=== PATIENT | female | born 1945 | race Caucasian/White ===

== ENCOUNTER 2021-07-08 18:00 | Inpatient (IN) | payer OTHER ==
[~2021-07-08] VITALS: Ht 167.6 cm; Wt 70.2 kg
[~2021-07-08 18:00] MED LIST: APAP W/CODEINE1 TA2 PO; LISINOPRIL2.5 MG PO; LOPRESSOR25 PO; NORCO 5-325 TA1 EACH PO
[2021-07-08 18:02] VITALS: BP 146/53
[2021-07-08 20:20] LABS: CALCIUM 9.1 mg/dL (8.5-10.1); CREATININE 1.4 mg/dL (0.6-1.0); POTASSIUM 4.1 mmol/L (3.5-5.1)
[2021-07-08] MEDS ORDERED: TOPROL XL100 MG PO (20:22)
[2021-07-08] MEDS ORDERED: LISINOPRIL20 MG PO (20:22)
[2021-07-08] MEDS ORDERED: SIMVASTATIN80 MG PO (20:22)
[2021-07-08] MEDS ORDERED: NORVASC5 MG PO (20:23)
[2021-07-08 21:02] LABS: ABSOLUTE NEUTROPHILS 11.6 thou/uL (1.4-8.2); BASOPHILS 0.6 % (0.0-2.0); EOSINOPHILS 3.2 % (0.0-3.0); HEMATOCRIT 38.3 % (37.0-47.0); HEMOGLOBIN 12.1 gm/dL (12.0-15.0); LYMPHOCYTES 7.2 % (24.0-44.0); MCH 26.6 pg (26.0-34.0); MCHC 31.7 g/dL (28.0-37.0); MCV 83.9 fL (80.0-100.0); MONOCYTES 7.4 % (1.0-8.0); PLATELET COUNT 240 thou/uL (150-400); POLYS 81.6 % (36.0-66.0); RBC 4.57 mil/uL (4.20-5.00); RDW 13.9 % (10.5-14.5); WBC 14.2 thou/uL (4.0-11.0)
--- NOTE | 2021-07-08 22:15 | NUR ---
SPOKE WITH PT EVITA CHARLES [phone]. UPDATED TO PLAN OF CARE AND ADMISSION DIAGNOSIS. ALL QUESTIONS AND CONCERNS ADDRESSED
[2021-07-09 02:37] LABS: CALCIUM 8.8 mg/dL (8.5-10.1); CREATININE 1.3 mg/dL (0.6-1.0); POTASSIUM 4.1 mmol/L (3.5-5.1)
[2021-07-09 03:23] LABS: HEMATOCRIT 37.4 % (37.0-47.0); HEMOGLOBIN 11.8 gm/dL (12.0-15.0); MCH 26.6 pg (26.0-34.0); MCHC 31.7 g/dL (28.0-37.0); MCV 83.9 fL (80.0-100.0); RBC 4.45 mil/uL (4.20-5.00); RDW 14.1 % (10.5-14.5); WBC 13.9 thou/uL (4.0-11.0)
[2021-07-09 09:23] VITALS: BP 126/58
[2021-07-09 10:50] VITALS: BP 120/48
[2021-07-09 14:05] VITALS: BP 106/50
[2021-07-09 18:52] VITALS: BP 106/50
[2021-07-09 18:57] VITALS: BP 123/69
[2021-07-09 20:32] VITALS: BP 140/75
--- NOTE | 2021-07-09 23:16 | NUR ---
PT ADMITTED TO 453 AT 1850 FROM ER. PT ALERT AND ORIENTED X 4. PT VERY ANXIOUS. AMB TO BR WITH WALKER AND ASSIST X 1. HAS PAIN IN HER FEET WITH AMBULATION. USING BSC FOR REST OF NIGHT. 02 ON AT 4L PER NC CONT. PT VERY SOB WITH EXERTION. LFA SL INTACT AND PATENT. LUNGS DIMINISHED. NO COUGH NOTED. PT ORIENTED TO ROOM AND USE OF CALL LIGHT. UNIT HANDBOOK GIVEN TO PT. PT C/O PAIN IN HER FEET. HYDROCODONE GIVEN ORDERED. PT NPO AFTER MIDNIGHT. PT INSTRUCTED REGARDING FALL PRECAUTIONS. BED ALARM ON FOR SAFETY. WILL CONTINUE TO MONITOR.
[2021-07-10 05:00] VITALS: BP 184/82
[2021-07-10 07:49] VITALS: BP 130/72
[2021-07-10 10:12] LABS: ABSOLUTE NEUTROPHILS 10.7 thou/uL (1.4-8.2); BASOPHILS 0.4 % (0.0-2.0); EOSINOPHILS 3.8 % (0.0-3.0); HEMATOCRIT 37.9 % (37.0-47.0); HEMOGLOBIN 11.8 gm/dL (12.0-15.0); LYMPHOCYTES 7.2 % (24.0-44.0); MCH 26.3 pg (26.0-34.0); MCHC 31.2 g/dL (28.0-37.0); MCV 84.3 fL (80.0-100.0); MONOCYTES 6.4 % (1.0-8.0); PLATELET COUNT 236 thou/uL (150-400); POLYS 82.2 % (36.0-66.0); RDW 14.5 % (10.5-14.5)
[2021-07-10 12:05] VITALS: BP 155/83
--- NOTE | 2021-07-10 15:32 | NUR ---
PT ADMITTED RELATED TO SOB, PNEUMONIA. CM REVIEWED CHART AND SPOKE WITH CARE TEAM. CM MET WITH PT AT BEDSIDE THIS DAY. PT APPEARED TO BE A&O X4. CM ROLE INTRODUCED. PT INDICATED SHE LIVES ALONE IN A HOUSE WITH 2-3 STEPS TO ENTER AND NO STEPS SHE USES INSIDE. 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 PT STATED SHE HAS A CANE FOR HOME USE. PT STATED SHE PLANS TO CHANGED PCP FROM DR. JUHI CASTELLANOS TO DR. WONG IN THE NEAR FURTURE. CARE TEAM INDICATED SHE WILL BE HERE OVER THE WEEKEND. CM SPOKE WITH PT ABOUT HOME O2 ANS HH SERVICES. CM TO FOLLOW INDICATED WITH DC PLANNING.
[2021-07-10 20:52] VITALS: BP 146/73
--- NOTE | 2021-07-11 04:51 | NUR ---
ASSUMED CARE AT 1900, PT LAYING DOWN COMFORTABLY, CALL LIGHT WITHIN REACH, REPORTS RIGHT FOOT PAIN, POOR PERFUSION FAINT PULSE, PAIN MEDICATION ADMINISERED PRESCRIBED, NO ADBVERSE REACTION NOTED, COMPLIANT TO TX, TOILETED NEEDED. WILL CONTINUE TO MONIOR.
[2021-07-11 05:04] VITALS: BP 122/63
[2021-07-11 07:38] VITALS: BP 148/86
[2021-07-11 16:24] VITALS: BP 143/75
[2021-07-11 20:28] VITALS: BP 157/71
--- NOTE | 2021-07-12 05:29 | NUR ---
ASSUMED CARE AT 1900, PT LAYING COMFORTABLY IN BED REPORTS PAIN ON THE RIGHT FOOT, PAIN MEDICATION ADMINISTERED PER REQUEST, COMPLIANT TO TX, NO ADVERSE REACTION, COMLIANT WITH O2, IV PATENT, SOB, UNABLE TO OBTAIN ADEQUATE SPUTUM, LAYING COMFORTABLY IN BED CALL LIGHT WITHIN REACH, TOILETED NBEEDED WILL CONBTINUE TO MINITOR.
[2021-07-12 07:00] VITALS: BP 140/72
--- NOTE | 2021-07-12 16:53 | NUR ---
Assumed pt care at 7am. Pt in and out of bed with sba.Assessment completed. Vss. Pt was very emotional related her new diagnosis and wanted someone to stay with her. Pastoral care called but not available. Emotional support given.Pt friend Aisha notified and she said that she will come to visit this evening.Pt c/o feet pain and norco given with relief.Consult called to Dr Prince as ordered. Pt in bed at present with o2 on.Will continue to monitor.
[2021-07-12 18:00] VITALS: BP 148/73
[2021-07-12 21:48] VITALS: BP 133/60
--- NOTE | 2021-07-13 05:15 | NUR ---
ASSUMED CARE AT 1900, PT HAS PROCEDURE SCHEDULED 07/13/21, LAYING COMFORTABLY IN BED, REPORTED RIGHT FOOT PAIN, PAIN MEDICATION ADMINISTERED, SLEEPING, COMPLIANT TO TX, NO ADVERSE REACTION NOTED, STAYED NPO AFTER MIDNIGHT, CALL LIGHT IN REACH, BELONGINGS WITHIN REACH, PT FRIEND REQUESTED TO BE NOTIFIED OF THE TIME PROCEDURE IS SHEDULED PRIOR, PT AUTHORIZED THIS. PLEASE NOTIFY HANNAH ON [phone] ONCE TIME FOR THE SUGERY IS DETERMINED. WILL CONTINUE TO MONITOR.
[2021-07-13 07:51] VITALS: BP 129/69
[2021-07-13 08:45] LABS: CALCIUM 8.6 mg/dL (8.5-10.1); CREATININE 1.1 mg/dL (0.6-1.0); POTASSIUM 3.6 mmol/L (3.5-5.1)
--- NOTE | 2021-07-13 13:16 | NUR ---
Assumed pt care at 7am.Pt in and out of bed to bsc with assist x1. Assessment completed.vss.Dr Recio and Suresh here, order noted. Pain med given for rt leg pain with partial relief.Pt kept npo for aortogram. Pt friend notified about time for picker feeder. Around 1300,pt left for labor mediator per bed.Will continue to monitor.
[2021-07-13 13:31] VITALS: BP 127/64
--- NOTE | 2021-07-13 15:49 | NUR ---
PT HAD ARTERIOGRAM THIS DAY. CARE TEAM INDICATED PT MAY BE MEDICALLY STABLE TO DC HOME WITH HOME HEALTH AND HOME O2 TOMORROW. CM FOLLOWING REGARDING DC PLANNING.
--- NOTE | 2021-07-13 17:50 | NUR ---
PT TRANSFERRED BACK TO [facility]. LEFT GROIN DRESSING CLEAN DRY INTACT. VSS. TOLERATED ANGIOGRAM WELL. VSS BP 127/55; HR 82. REPORT TO CHAD
[2021-07-13 20:05] VITALS: BP 125/67
[2021-07-14 06:02] LABS: HEMATOCRIT 34.8 % (37.0-47.0); HEMOGLOBIN 11.3 gm/dL (12.0-15.0); MCH 27.2 pg (26.0-34.0); MCHC 32.4 g/dL (28.0-37.0); RBC 4.14 mil/uL (4.20-5.00); RDW 14.2 % (10.5-14.5); WBC 12.4 thou/uL (4.0-11.0)
[2021-07-14 06:28] LABS: ALBUMIN 2.1 g/dL (3.4-5.0); CALCIUM 7.5 mg/dL (8.5-10.1); CREATININE 0.8 mg/dL (0.6-1.0); PHOSPHORUS 2.2 mg/dL (2.5-4.9); POTASSIUM 3.4 mmol/L (3.5-5.1)
--- NOTE | 2021-07-14 06:37 | NUR ---
ASSUMED CARE OF PT AT 1900. PT ASSESSED TO BE AOX4 76F PRESENTING WITH PNEUMONIA AND L LEG OCCLUSION. PT HAD AORTOGRAM WITH STENTS YESTERDAY, L GROIN SITE C/D/I NONTENDER WITH NO BLEEDING THROUGHOUT THE NIGHT. THROUGHOUT THE NIGHT PT WAS ABLE TO REST QUIETLY IN ROOM WITH NO COMPLAINTS, VSS. PT IS VERY HAPPY WITH PROGRESS OF SURGERY. IS ABLE TO GET UP TO PIVOT TO COMMODE, SINUS ON TELE, ON 2L OXYGEN, PAIN CONTROLLED WITH ORAL MEDICATION, AND SUGARS CONTROLLED. RESTING IN ROOM NOW, WILL PASS ON INFORMATION TO DAY SHIFT RN.
[2021-07-14 07:39] VITALS: BP 160/81
--- NOTE | 2021-07-14 12:29 | NUR ---
PT TO GO FOR ANGIOGRAM THIS DAY. CM MET WITH PT THIS AM SHE HAD EXPRESSED CONCERN ABOUT DISCHARGING HOME ALONE. CM PROVIDED [employer] SNF LIST SHOULD SH FEEL LIKE SHE ISN'T READY TO DC HOME FOLLOWING PROCEDURE. CM INDICATED OTHERWISE WE WOULD ASSIST IN ORDERING HOME 02, WHATEVER TYPE OF WALKER PT NEEDED WELL HOME HEALTH PT, OT, AND NURSING. CM FOLLOWING REGARDING DC PLANNING.
[2021-07-14 16:40] VITALS: BP 138/72
--- NOTE | 2021-07-14 18:39 | NUR ---
PT ALERT AND ORIENTED TIMES FOUR. VSS. PT C/O PAIN PRN MEDICATIONS GIVEN WITH SOME RELEIF. PT TOLERATES MEDS AND MEALS. PT UP TO BSC WITH STANDBY ASSIST. WILL CONTINUE TO MONITOR.
[2021-07-14 19:49] VITALS: BP 161/79
[2021-07-15 00:05] VITALS: BP 126/56
--- NOTE | 2021-07-15 03:03 | NUR ---
PATIENT AOX4 MAKES NEEDS KNOWN. PATIENT HAS BEEN NPO SINCE MIDNIGHT. PAIN CONTROLLED THIS SHIFT. FALL PRECAUTION IN PLACE.PATIENT NEEDS MAXIMUM ASSISTANCE WITH ADL, BED MOBILITY, TRANSFER AND TOILETING. PATIENT IN BED ASLEEP AT THIS TIME BREATHING REGULAR AND UNLABOURED.
[2021-07-15 04:16] VITALS: BP 145/68
[2021-07-15 07:46] VITALS: BP 142/64
--- NOTE | 2021-07-15 09:24 | NUR ---
Assess for length of stay. Admit with respitatory failure, pneumonia. Pt eating well, >75% of meals and reports no wt loss. Presents low nutrition risk
--- NOTE | 2021-07-15 11:58 | NUR ---
CM SPOKE WITH PT'S SON MELVIN TWICE ALREADY THIS DAY. HE HAD HEARD FROM PT'S FRIENDS THAT PT'T ANGIOGRAM WITH IR HAD BEEN RESCHEDULED FOR TOMORROW. CM INDICATED THAT CM HAD REVIEWED CHART, SPOKEN WITH STAFF, AND LAID EYES ON PT AND THAT THE REASON THAT THE PROCEDURE MAY HAVE BEEN RESCHEDULED WAS LIKELY RELATED TO ANSTEHIA OR IR'S AVAIABILITY. CM INIDCATED THAT HIS MOTHER WAS STABLE WITH MINIMAL CHANGES THEY HAD PUT A CREAM ON THE BOTTOM OF HER FOOT. PT TO HAVE ANGIOGRAM TOMORROW. CM FOLLOWING.
[2021-07-15 16:39] VITALS: BP 132/62
[2021-07-15 19:44] VITALS: BP 137/69
[2021-07-16 00:56] VITALS: BP 144/62
--- NOTE | 2021-07-16 03:54 | NUR ---
RECEIVED CAREOF THIS PATIENT AT 1900. PATIENT ALERT AND ORIENTED X4. UP TO BSC WITH ASSISTOF 1. C/O PAIN, MED GIVEN. NPO SINCE MNFOR A PROCEDURE THIS AM. SLEPT MOST OF NIGHT.
[2021-07-16 06:14] VITALS: BP 119/60
[2021-07-16 07:29] VITALS: BP 149/70
[2021-07-16 09:59] LABS: HEMATOCRIT 35.9 % (37.0-47.0); HEMOGLOBIN 11.3 gm/dL (12.0-15.0); MCH 26.5 pg (26.0-34.0); MCHC 31.5 g/dL (28.0-37.0); PLATELET COUNT 247 thou/uL (150-400); RBC 4.28 mil/uL (4.20-5.00); RDW 14.1 % (10.5-14.5); WBC 21.4 thou/uL (4.0-11.0)
[2021-07-16 10:08] LABS: CALCIUM 8.6 mg/dL (8.5-10.1); CREATININE 0.8 mg/dL (0.6-1.0); POTASSIUM 3.1 mmol/L (3.5-5.1)
[2021-07-16 10:10] LABS: ALBUMIN 2.2 g/dL (3.4-5.0); TOTAL BILIRUBIN 0.5 mg/dL (0.2-1.0); TOTAL PROTEIN 6.4 g/dL (6.4-8.2)
[2021-07-16 10:13] LABS: APTT 31.6 Seconds (24.5-32.8); INR 1.06; PROTIME 11.5 Seconds (10.5-12.1)
[2021-07-16 11:38] LABS: ABSOLUTE NEUTROPHILS 19.9 thou/uL (1.4-8.2)
--- NOTE | 2021-07-16 11:44 | NUR ---
Pt is scheduled for anesthesia to assist with additional intervention to the right leg consisting of antegrade approach with plan for thrombectomy right posterior tibial artery with angioplasty this day 07/16/21 at 1300. This am CM called pt's son Luc Dobbs who is driving here for [place] and left a voicemail indicating that above. He had been informed of this previously but cm reiterated info. Care team indicate that it is anticpated that pt will transfer to ccu post procedure this afternoon. Cm had provided pt with an [employer] snf list for review and had explained to both pt and son about either short term skilled rehab stay under pt's insurance vs. home with home health, home oxygen, and possible a fww also covered by her insurance. Neither have made an indication of preferance at this time. Pt wants to see as to how she feels working with therapy post angiogram before she makes a decision. Pt and son hadn't indicated preferance for providers should they want home with home health and dme. CM would ask about Brigette Arciniega, and provider plus. cm following regarding dc planning.
--- NOTE | 2021-07-16 13:26 | NUR ---
Pt in procedure. Pt personal belongings taken to room 212 in CCU.
[2021-07-16 16:50] VITALS: BP 118/63
[2021-07-16 19:43] VITALS: BP 106/50
[2021-07-17 00:03] VITALS: BP 120/41
[2021-07-17 03:21] LABS: HEMATOCRIT 30.2 % (37.0-47.0); HEMOGLOBIN 9.5 gm/dL (12.0-15.0); MCH 26.8 pg (26.0-34.0); MCHC 31.6 g/dL (28.0-37.0); RBC 3.55 mil/uL (4.20-5.00); RDW 14.4 % (10.5-14.5); WBC 19.8 thou/uL (4.0-11.0)
[2021-07-17 03:31] LABS: POTASSIUM 4.2 mmol/L (3.5-5.1)
[2021-07-17 03:46] VITALS: BP 152/98
[2021-07-17 09:10] VITALS: BP 116/44
[2021-07-17 12:06] VITALS: BP 109/55
[2021-07-17 16:14] VITALS: BP 105/52
--- NOTE | 2021-07-17 16:50 | NUR ---
CARE TEAM INDICATED THAT PT IS PROGRESSING TOWARD GOAL OF DISCHARGE. CM ATTEMTPED TO VISIT WITH PT MULTIPAL TIMES THIS DAY BUT SHE WAS WITH PHYSICIANS OR THERAPY. CM CALLED AND LEFT VM WITH HER SON. PT AND OT INDICATED HOME WITH HH VS. POST ACUTE CARE STAY. CM HAD SPOKEN WITH BOTH PT AND SON ABOUT BOTH OPTIONS WELL. CARDIOLOGY AND ID ADJUSTING PT'S MEDS. CARE TEAM INDICATED THAT PT WOULD BE HERE OVER THE WEEKEND. CM TO FOLLOW UP WITH PT AND SON REGARDING THEIR DC PRFERANCE BEGINING OF NEXT WEEK.
[2021-07-17 19:17] VITALS: BP 111/45
--- NOTE | 2021-07-17 22:25 | NUR ---
UPON INITIAL ASSESSMENT PATIENTS LEFT FOOT WAS COLD TO TOUCH WITH DISCOLORATION AROUND TOES. NURSE WAS UNABLE TO FIND PATIENTS PULSE WITH DOPPLER AND CALLED IN SECOND NURSE TO ASSESS TO NO AVAIL. PROVIDER CONTACTED TO RELAY RESULTS WITH NO ORDERS RECEIVED. PER PATIENT AND SON WHO WAS AT BEDSIDE, PATIENT WOULD LIKE EVERY TREATMENT AVAILABLE TO CORRECT PROBLEM. NURSE TO CONTINUE TO MONITOR.
[2021-07-18 03:55] VITALS: BP 118/45
--- NOTE | 2021-07-18 05:09 | HC ---
[facility] [place] [address] CONSULTATION Name: MARAH CLARKE Room #: 212-P ADM IN M.R.#: [id number] Admission: 07/08/21 Attend Phys: Cody Recio Discharge: Date of : 43 Report #: [id number] THIS REPORT FOR: cc: Karma Ferrer MD, Stany A. MD Barry, Joseph W. MD ~ DATE OF SERVICE: 07/17/2021 INFECTIOUS DISEASE CONSULTATION ATTENDING PHYSICIAN: Dr. Recio. REASON FOR EVALUATION: Persistent leukocytosis, postobstructive pneumonia, ischemic right lower extremity. HISTORY OF PRESENT ILLNESS: Chart reviewed. The patient examined. This is a 76-year-old woman with known hypertension, suspected COPD as well who presented to the Emergency Room on date of admission, on 07/08 with complaints of progressive dyspnea over the previous few days, noted at that time had a previous diagnosis of sinus infection, which was treated with some exacerbation of her, appears to be some underlying lung disease. Evaluation noted a right upper lobe pneumonia. CT showed multiple lung masses. At that time, she has had a somewhat complicated course and some ischemic changes noted to the right lower extremity. This was confirmed to have significant arterial occlusive disease. Seen by interventional radiology and underwent aortogram on 07/13, which showed occlusive in the mid distal, right anterior tibial, peroneal and posterior tibial arteries and felt to have an embolic source in a common proximal iliac arteries. She did undergo stent placement, although unsuccessful thrombectomy, right posterior tibial artery with persistent embolic occlusion. As per the evaluation, has had serial CBCs done, has had persistent leukocytosis with peak yesterday 21.4, repeat today was 19.8. Has been on empiric therapy with combination of levofloxacin and Zosyn. Overall, she states she actually feels improved. She has a persistent cough. It is not overtly productive. Sputum was ordered. It was never collected. Initial blood cultures were sterile at the time of admission. She is currently maintained on room air. ALLERGIES: LISTED TO PENICILLIN, WHICH CAUSES URTICARIA, although tolerates Zosyn and SULFA LISTED WELL. CURRENT MEDICATIONS: Include Levaquin, clopidogrel, aspirin, heparin, atorvastatin, hydroxyzine, Zosyn, hydrocodone, amlodipine, metoprolol, guaifenesin. PAST MEDICAL HISTORY: As described above, hypertension, hyperlipidemia, arterial occlusive disease of lower extremity. [address] [address] CONSULTATION Name: MARAH CLARKE Room #: 212-P [facility] IN .R.#: [id number] Admission: 07/08/21 Attend Phys: Cody Recio Discharge: Date of : 43 Report #: [id number] SOCIAL HISTORY: Former smoker, ethanol in the past. No illicit drug use. FAMILY HISTORY: Noncontributory. REVIEW OF SYSTEMS: Otherwise noted above. Appetite has been somewhat improved. Denies significant gastrointestinal related complaints. PHYSICAL EXAMINATION: GENERAL: She appears chronically ill, undernourished, pleasant, cooperative, generally lucid. She is anxious. VITAL SIGNS: Temperature 98, pulse 69, respirations 18, blood pressure is 109/55. SKIN: Warm. She is pale. HEENT: Normocephalic. Extraocular muscles intact. NECK: Supple. LUNGS: Overall diminished breath sounds; has some bilateral crackles, primarily lower lobes. HEART: Regular, occasional ectopy, soft systolic murmur. ABDOMEN: Mildly distended, minimally firm, nontender. EXTREMITIES: No cyanosis. Right lower extremity somewhat cool to the touch. GENITOURINARY AND RECTAL: Deferred. LABORATORY DATA: Most recent CBC: White count 19.8, H and H 9.5 and 30.2, platelets of 227. Electrolytes: Sodium 143, potassium 4.2, chloride 108, bicarbonate is 24, anion gap of 11, BUN and creatinine 18 and 1.0. Chest x-ray showed multifocal infiltrative change, probably involving the right upper lobe and right perihilar region, increasing infiltrate in left base. Lungs with underlying emphysematous changes. Arteriography showed a thrombectomy, right tibioperoneal trunk unsuccessful thrombectomy, left posterior tibial artery with persistent embolic occlusion of the mid and distal right anterior tibial and peroneal arteries. Liver functions otherwise unremarkable. Albumin of 2, total protein of 6.4. CTA of the chest showed no evidence of PE, large right upper lobe pneumonia, mass-like regular fullness in the right hilum. There is a question of malignancy, irregular, in lower left. Segment of 5 cm of spiculated margins again raises question of malignancy. CT abdomen and pelvis, extensive pulmonary interstitial infiltrate at the bases of the lungs, adrenal nodularity. Arterial disease showed monophasic flow through the lower extremity, suggestive of severe diffuse right lower extremity arterial occlusive disease and this was confirmed. ASSESSMENT AND PLAN: Persistent leukocytosis in a patient that got likely significant medical disease burden and certainly appears to have widespread vasculopathy including embolus and the right lower extremity has pneumonitis. This is probably in the setting of postobstructive suspicious for underlying malignancy, unlike the persistent leukocytosis which is likely multifactorial in [facility] [address] [place] [address] CONSULTATION Name: MARAH CLARKE Room #: 212-P [facility] IN M.R.#: [id number] Admission: 07/08/21 Attend Phys: Cody Castillo Ariadnajono Discharge: Date of : 43 Report #: [id number] etiology. At this point, she is actually improving subjectively, has been weaned off oxygen therapy as tolerating increased activity. Appetite is improved. Overall less dyspneic. We will continue current therapy with Levaquin, transitioned to Augmentin to complete additional few days to see how she does clinically. Monitor expectantly, certainly at risk for additional complications. I do not think I would do any significant diagnostic evaluation at this point given her clinical improvement noted. Next step would probably be bronchoscopy and she is disinclined at this point to undergo that. <ELECTRONICALLY SIGNED> By: Anatoliy Schaffer MD 07/18/21 0509 [id number] Anatoliy Schaffer MD /nt
[2021-07-18 07:21] LABS: HEMATOCRIT 31.1 % (37.0-47.0); HEMOGLOBIN 9.6 gm/dL (12.0-15.0); MCH 26.3 pg (26.0-34.0); MCV 84.7 fL (80.0-100.0); RBC 3.67 mil/uL (4.20-5.00); RDW 14.7 % (10.5-14.5); WBC 17.6 thou/uL (4.0-11.0)
[2021-07-18 07:32] LABS: CALCIUM 8.1 mg/dL (8.5-10.1); CREATININE 0.8 mg/dL (0.6-1.0); POTASSIUM 3.8 mmol/L (3.5-5.1); TOTAL BILIRUBIN 0.3 mg/dL (0.2-1.0); TOTAL PROTEIN 5.8 g/dL (6.4-8.2)
[2021-07-18 07:58] VITALS: BP 124/43
[2021-07-18 12:05] VITALS: BP 116/53
[2021-07-18 16:09] VITALS: BP 123/44
--- NOTE | 2021-07-18 17:53 | NUR ---
PATIENT ASSESMENTS CHARTED. PATIENT SON AT THE BEDSIDE MOST OF THE DAY. PATIENT HAVING MULTIPLE BM'S. PULSE NOT HEARD ON DOPPLER FOR FOOT.
[2021-07-18 20:15] VITALS: BP 141/66
[2021-07-19 04:45] VITALS: BP 144/64
[2021-07-19 04:54] LABS: HEMATOCRIT 29.3 % (37.0-47.0); HEMOGLOBIN 9.4 gm/dL (12.0-15.0); MCH 26.8 pg (26.0-34.0); MCV 83.8 fL (80.0-100.0); RBC 3.5 mil/uL (4.20-5.00); RDW 14.5 % (10.5-14.5); WBC 16.3 thou/uL (4.0-11.0)
[2021-07-19 05:17] LABS: CALCIUM 8.4 mg/dL (8.5-10.1); CREATININE 0.7 mg/dL (0.6-1.0); POTASSIUM 3.9 mmol/L (3.5-5.1)
--- NOTE | 2021-07-19 05:29 | NUR ---
PT LYING IN BED. VOIDING PER BEDPAN. LORTAB PROVIDING PAIN RELIEF. RESTING COMFORTABLY. NO NEEDS VOICED. CALL LIGHT WITHIN REACH. FREQUENT OBSERVATION.
[2021-07-19 07:18] VITALS: BP 149/71
[2021-07-19 10:54] VITALS: BP 134/63
[2021-07-19 16:30] VITALS: BP 132/70
--- NOTE | 2021-07-19 17:47 | NUR ---
Pt A & O x4.Pt VS stable. Pt is on 3L of 02 per nasal cannula. Pt is NSR on the tele. Pt is x1 assist with ADLs and cares. Pt received medications as ordered and also received PRN medications. Pt is able to make needs known
[2021-07-19 19:45] VITALS: BP 124/59
--- NOTE | 2021-07-20 02:11 | NUR ---
PT TRANSFERRING TO BEDSIDE COMMODE WITH ASSIST AND IS TOLERATING FAIR. LORTAB PROVIDING PAIN RELIEF. RESTING COMFORTABLY. NO NEEDS VOICED. CALL LIGHT WITHIN REACH. FREQUENT OBSERVATION.
[2021-07-20 04:45] VITALS: BP 137/71
[2021-07-20 08:32] VITALS: BP 135/61
--- NOTE | 2021-07-20 10:41 | NUR ---
Assumed care of pt this AM. Pt is A&O x4, SR on the monitor, 1L NC. Son at bedside w/ many questions about plan of care & status of pt foot. Explained to pts son that this is the first time I've met pt & am unable to attest to the current status of improvement of foot. This nurse at bedside w/ provider in room while explaining pt has right to seek second opinion regarding care for foot. Plan for case management meeting today to discuss care moving forward. Pt with loose stools today. PRN nitro paste applied to rt foot. Frequent rounding in place.
[2021-07-20 12:10] VITALS: BP 100/62
--- NOTE | 2021-07-20 12:47 | NUR ---
Patient refused to do the Exercise Oximetry after three failed attempts to get her out of bed. Patient stated that she was too tired and not enough energy to walk with me, that it was just too much. I notified Dr Jo at 1206 via [employer] and also TATIANA Crockett that patient was not complying with order. I cancelled the order and relayed that information as well to Keira as there was no call back or conversation with Dr Jo. I let the charge therapist know and he was going to relay the information to the therapist that has the area as he is oritientating her today.
[2021-07-20 16:11] VITALS: BP 112/50
[2021-07-20 20:15] VITALS: BP 133/59
--- NOTE | 2021-07-21 02:54 | NUR ---
PT IS ALERT AND ORIENTED X4. LUNGS ARE CLEAR TO DIMINISHED ON ROOM AIR. COMPLAINTS OF SHE CANT SLEEP TO HER FOOT RIGHT ONE HURTS A PAIN SCALE OF 7 TO 8. HYDROCODEINE GIVEN AND AN ORDER FOR TORADOL GIVEN TO HELP PT SLEEP AND GET SOME PAIN RELIEF. RIGHT FOOT IS COOL TO TOUCH AND WHITE WITH NO PULSE PRESENT. SON WAS AT THE BESIDE THIS EVENING VISITING HER. USES THE BEDPAN TO VOID. IN ISOLATION AWAITING C-DIFF RESULTS.
[2021-07-21 04:45] VITALS: BP 134/77
[2021-07-21 07:30] VITALS: BP 141/105
[2021-07-21 11:00] VITALS: BP 118/61
--- NOTE | 2021-07-21 11:42 | NUR ---
POTENTIAL PLAN TO DISCHARGE TODAY HOME WITH H/H. PATIENT VERY ANXIOUS ABOUT DISCHARGE PLANS AND ENSURING THAT SHE HAS ALL THE NECESSARY EQUIPMENT AT HOME. WILL COMMUNICATE WITH CYBER FORENSICS ANALYST AND PHYSICIAN.
[2021-07-21] MEDS ORDERED: CLOPIDOGREL75 MG PO (12:18)
[2021-07-21] MEDS ORDERED: HYDROCODON-ACE1 EAC7 PO (12:18)
[2021-07-21] MEDS ORDERED: BAYER CHEWABLE81 MG PO (12:18)
[2021-07-21] MEDS ORDERED: NITRO-BID1 GM TOP (12:18)
[2021-07-21] MEDS ORDERED: IPRAT-ALBUT 0.5-3 ML INH (12:18)
[2021-07-21] MEDS ORDERED: ACETAMINOPHEN325 M1 PO (12:18)
[2021-07-21 12:57] VITALS: BP 118/61
--- NOTE | 2021-07-21 15:28 | NUR ---
CARE TEAM INDICATED THAT PT IS MEDICALLY STABLE TO DC HOME THIS DAY. PT IS TO HAVE HH PT, OT, NURSING, SW. [facility] IS ACCEPTING. CM SPOKE WITH PT'S SON THIS DAY. HE INQUIRED ABOUT A WC FOR HOME USE. CM CALLED AND SPOKE WITH PT WHO HAD BEEN WORKING WITH PT AND SHE INDICATED PT HAD ASKED HER ABOUT ONCE WELL AND THAT SHE HADN'T RECOMMENDED IT SHE WOULDN'T WANT PT TO BECOME RELIANT ON IT IN THE HOME. CM, SON, AND PT SPOKE ABOUT TRANSFER CHAIR. SON TO VISIT DME SUPPLIER ON [employer] TO AQUIRE A TRANSFER CHAIR AND A BSC FOR HOME USE INSURANCE DOESN'T COVER THOSE ITEMS. SON INDICATED THAT PT HAS A WALKER FOR HOME USE. PT INDICATED THAT PT STATED THAT THEY HAVE ACCESS TO ONE THAT SHE CAN SUQUAMISH. DANIELIFING TYPE OF WALKER AVAIABLE. PT'S SON TO PROVIDE TRANSPORT HOME THIS DAY HE WILL BE HERE BETWEEN [id number]. [facility] FAXED ORDERS TO [facility].
[2021-07-21 16:14] VITALS: BP 118/61
--- NOTE | 2021-07-21 19:18 | NUR ---
SON AT BEDSIDE TO REVIEWED DISCHARGE INSTRUCTIONS. PROVIDED LIST OF MEDICATIONS. SCRIPTS SENT TO PHARMACY. SENT WITH PRINTED SCRIPT FOR HYDROCODONE AND PLAVIX. DISCUSSED FOLLOW UP APPOINTMENTS AND INFORMATION ON HOME HEALTH AGENCY. PATIENT AND SON DENIES ANY FURTHER QUESTIONS AFTER REVIEWING DISCHARGE PACKET. IV DISCONTINUED. TELEMONITOR OFF. LEFT FACILITY WITH SON PRESENT.
== END 2021-07-21 17:21 | disposition home health service (06) | DRG 853 ==
LOC: ER 18:00 → EROBS 21:36 → 4W 21:36 → EROBS 21:50 → ER 21:50 → EROBS 07-09 12:07 → 4W 07-09 18:35 → 2N 07-16 15:23
PROVIDERS: Emergency Medicine; Internal Medicine; Nuclear Medicine Nuclear Cardiology; Nurse Practitioner; Nurse Practitioner Family; Specialist; ADMIT Hospitalist; ATTEND Hospitalist
DX: A41.9 Sepsis, unspecified organism (principal); J96.01 Acute respiratory failure with hypoxia; J18.9 Pneumonia, unspecified organism; N17.9 Acute kidney failure, unspecified; I70.261 Atherosclerosis of native arteries of extremities with gangrene, right leg; R91.8 Other nonspecific abnormal finding of lung field; Z20.822 Contact with and (suspected) exposure to COVID-19; I10 Essential (primary) hypertension; E78.5 Hyperlipidemia, unspecified; D72.10 Eosinophilia, unspecified; R20.2 Paresthesia of skin; Z80.1 Family history of malignant neoplasm of trachea, bronchus and lung; Z87.891 Personal history of nicotine dependence; Z88.0 Allergy status to penicillin; Z88.2 Allergy status to sulfonamides; Z71.6 Tobacco abuse counseling; Z23 Encounter for immunization
CPT/HCPCS: 10045; 10081; 62110; 62900; 70005

== ENCOUNTER → 2021-07-28 | Outpatient (CLI) | payer OTHER ==
[~2021-07-28] MED LIST changes: +ACETAMINOPHEN325 M1 PO; +BAYER CHEWABLE81 MG PO; +CLOPIDOGREL75 MG PO; +HYDROCODON-ACE1 EAC7 PO; +IPRAT-ALBUT 0.5-3 ML INH; +LISINOPRIL20 MG PO; +NITRO-BID1 GM TOP; +NORVASC5 MG PO; +SIMVASTATIN80 MG PO; +TOPROL XL100 MG PO
== END ==
LOC: CAT 16:25
PROVIDERS: ATTEND Pediatrics
DX: J44.9 Chronic obstructive pulmonary disease, unspecified (principal); R06.02 Shortness of breath; R91.8 Other nonspecific abnormal finding of lung field; J90 Pleural effusion, not elsewhere classified

== ENCOUNTER → 2021-07-28 | Outpatient (CLI) | payer OTHER | LOC: RAD 13:09 | PROVIDERS: ATTEND Pediatrics | DX: R06.02 Shortness of breath (principal); R91.8 Other nonspecific abnormal finding of lung field ==

== ENCOUNTER → 2021-08-07 | Outpatient (CLI) | payer OTHER ==
[~2021-08-07] MED LIST changes: +ASA81BEC PO; +LEVOFLOXACIN500 MG PO; +LIDOCAINE1 EACH TRANSDERM; +MELATONIN10 M3 PO; +MIRALAX17 GM PER TUBE; +PLAVIX 75 MG TA75 MG PO; +PREDNISONE 20 M20 M1 PO; +PROTONIX 20 MG20 M1 PO; +PULMICORT0.5 MG/21 INH; +REMERON 30 MG T30 M1 PO; +ROXICODONE5 M2 PO; +TOPROL XL50 MG PO; +ZOCOR 20 MG TAB20 M1 PO
== END ==
LOC: PET
PROVIDERS: ATTEND Pediatrics
DX: R91.1 Solitary pulmonary nodule (principal)

== ENCOUNTER 2021-08-14 00:15 | Inpatient (IN) | payer OTHER ==
[2021-08-14] VITALS (7 sets, daily range): BP systolic 102–161; BP diastolic 39–67
[~2021-08-14] VITALS: Ht 170.2 cm; Wt 58.4 kg
--- NOTE | ~2021-08-14 | EMS ---
[facility] [address] [place] [address] EMS Patient Care Report Name: MARAH CLARKE Room #: 170-8 ADM IN M.R.#: [id number] Admission: 08/14/21 Attend Phys: Luisito Jo MD Discharge: Date of : 43 Report #: [id number] THIS REPORT FOR: //name// Report Transmitted: 08/14/2021 06:21 EMS Care Summary [facility] MED-ACT Incident [id number] @ 08/13/2021 23:19 Incident Location [address] [place] [place] [address] Patient MARAH CLARKE Female, 76 Years 1945 Patient Address [address] [place] [address] Patient History Chronic Obstructive Pulmonary Disease (COPD),Lung Cancer,Pneumonia, Patient Allergies No known allergies,Penicillin allergy,Sulfur allergy, Patient Medications None Reported, Chief Complaint Abdominal Pain Disposition Transported No Lights/[place] Dispatch Reason Sick Person Transported To [facility] Narrative Patient found lying in bed with 2 L of oxygen via nasal cannula. Patient appeared to have an elevated level of anxiety prior to EMS arrival. Patient son reports patient is having some abdominal pain it started a couple of days ago. Patient was released from the hospital approximately three weeks ago after [facility] [address] [place] [address] EMS Patient Care Report Name: MARAH CLARKE Room #: 170-8 ADM IN M.R.#: [id number] Admission: 08/14/21 Attend Phys: Luisito Jo MD Discharge: Date of : 43 Report #: [id number] going in for pneumonia and finding out that she had possible lung cancer with future appointment for a biopsy for confirmation. Every since leaving the hospital patient has felt that she has some lumps in her abdominal area that are painful to touch and approximately three days ago developed a bruise over top of one of the lump areas. Patient is scheduled to have a lung biopsy in the morning at [facility]. Patient reports feeling a five out of 10 squeezing cramping pain all along her abdomen and especially under a bruised area of the left upper quadrant. Patient denies any nausea vomiting diarrhea constipation at this time. Patient was lifted to ambulance cot and secured with seatbelts. Patient was covered with a blanket for warmth and moved to the ambulance that incident. Patient was transported in position of comfort to hospital of choice. During transport EMS continually assistant golf coach patient to help her relax as she was anxious for the emergency room evaluation. EMS alerted [facility] on [employer] system WIRE TEMPERER. Patient was delivered to ER bed eight without change. Patient was lifted via three person sheet lift to hospital bed and secured with lock side rails in the upright position. Lead bead trimmer gave report to receiving RN transferring patient care to hospital staff. Initial Vitals @00:07P: 85,BP: 96/62,SpO2: 92, @23:49P: 79,R: 18,BP: 107/61,Pain: 4/10,GCS: 15,Temp: 97.8F,SpO2: 94,Revised Trauma: 12, Impression Abdominal Pain Procedures @PTAOxygen FlowRate: 2 Device: Nasal Cannula (NC) Response: ImprovedSucceeded Timeline WIRE TEMPERER,Oxygen FlowRate: 2 Device: Nasal Cannula (NC) Response: ImprovedSucceeded, 23:17,Call Received 23:17,Psap Call 23:19,Dispatched 23:20,En Route 23:27,On Scene 23:27,At Patient 23:49,BP: 107/61 M,PULSE: 79,RR: 18 R,SPO2: 94 Ox,ETCO2: ,BG: ,PAIN: 4,GCS: 15, 00:03,Depart Scene 00:07,BP: 96/62 M,PULSE: 85,RR: R,SPO2: 92 Ox,ETCO2: ,BG: ,PAIN: ,GCS: , 00:12,At Destination 00:29,Call Closed [facility] [address] [place] [address] EMS Patient Care Report Name: MARAH CLARKE Room #: 170-8 ADM IN [facility]#: [id number] Admission: 08/14/21 Attend Phys: Luisito Jo MD Discharge: Date of : 43 Report #: [id number] Disclaimer v1.1 Copyright 2021 [employer] This EMS Care Summary contains data elements from the applicable legal record (which may be displayed differently). It is designed to provide pertinent information for the following purposes: continuity of care, clinical quality, and state data reporting. The complete legal record is available to ED staff and administrators of the receiving hospital in [facility]'s Patient Tracker. All data is provided "as is."
--- NOTE | ~2021-08-14 | EMS ---
[facility] [address] [place] [address] EMS Patient Care Report Name: MARAH CLARKE Room #: 212-P ADM IN M.R.#: [id number] Admission: 08/14/21 Attend Phys: Luisito Jo MD Discharge: Date of : 43 Report #: [id number] THIS REPORT FOR: //name// Report Transmitted: 08/14/2021 07:25 EMS Care Summary [facility] MED-ACT Incident [id number] @ 08/13/2021 23:19 Incident [address] [place] [address] Patient MARAH CLARKE Female, 76 Years 1945 Patient Address [address] [place] [address] Patient History Chronic Obstructive Pulmonary Disease (COPD),Lung Cancer,Pneumonia, Patient Allergies No known allergies,Penicillin allergy,Sulfur allergy, Patient Medications None Reported, Chief Complaint Abdominal Pain Disposition Transported No Lights/[place] Reason Sick Person Transported To [facility] Narrative Patient found lying in bed with 2 L of oxygen via nasal cannula. Patient appeared to have an elevated level of anxiety prior to EMS arrival. Patient son reports patient is having some abdominal pain it started a couple of days ago. Patient was released from the hospital approximately three weeks ago after [facility] [address] [place] [address] EMS Patient Care Report Name: MARAH CLARKE Room #: 212-P ADM IN M.R.#: [id number] Admission: 08/14/21 Attend Phys: Luisito Jo MD Discharge: Date of : 43 Report #: [id number] going in for pneumonia and finding out that she had possible lung cancer with future appointment for a biopsy for confirmation. Every since leaving the hospital patient has felt that she has some lumps in her abdominal area that are painful to touch and approximately three days ago developed a bruise over top of one of the lump areas. Patient is scheduled to have a lung biopsy in the morning at [facility]. Patient reports feeling a five out of 10 squeezing cramping pain all along her abdomen and especially under a bruised area of the left upper quadrant. Patient denies any nausea vomiting diarrhea constipation at this time. Patient was lifted to ambulance cot and secured with seatbelts. Patient was covered with a blanket for warmth and moved to the ambulance that incident. Patient was transported in position of comfort to hospital of choice. During transport EMS continually quality assurance coach patient to help her relax as she was anxious for the emergency room evaluation. EMS alerted [facility] on [employer] system [employer]. Patient was delivered to ER bed eight without change. Patient was lifted via three person sheet lift to hospital bed and secured with lock side rails in the upright position. Lead tip finisher gave report to receiving RN transferring patient care to hospital staff. Initial Vitals @00:07P: 85,BP: 96/62,SpO2: 92, @23:49P: 79,R: 18,BP: 107/61,Pain: 4/10,GCS: 15,Temp: 97.8F,SpO2: 94,Revised Trauma: 12, Impression Abdominal Pain Procedures @PTAOxygen FlowRate: 2 Device: Nasal Cannula (NC) Response: ImprovedSucceeded Timeline [employer],Oxygen FlowRate: 2 Device: Nasal Cannula (NC) Response: ImprovedSucceeded, 23:17,Call Received 23:17,Psap Call 23:19,Dispatched 23:20,En Route 23:27,On Scene 23:27,At Patient 23:49,BP: 107/61 M,PULSE: 79,RR: 18 R,SPO2: 94 Ox,ETCO2: ,BG: ,PAIN: 4,GCS: 15, 00:03,Depart Scene 00:07,BP: 96/62 M,PULSE: 85,RR: R,SPO2: 92 Ox,ETCO2: ,BG: ,PAIN: ,GCS: , 00:12,At Destination 00:29,Call Closed [facility] [address] [place] [address] EMS Patient Care Report Name: MARAH CLARKE Room #: 212-P [facility] IN [facility].#: [id number] Admission: 08/14/21 Attend Phys: Luisito Jo MD Discharge: Date of : 43 Report #: [id number] Disclaimer v1.1 Copyright 2021 [employer] This EMS Care Summary contains data elements from the applicable legal record (which may be displayed differently). It is designed to provide pertinent information for the following purposes: continuity of care, clinical quality, and state data reporting. The complete legal record is available to ED staff and administrators of the receiving hospital in [facility]'s Patient Tracker. All data is provided "as is."
[~2021-08-14 00:15] MED LIST changes: -LIDOCAINE1 EACH TRANSDERM; -MIRALAX17 GM PER TUBE; -PREDNISONE 20 M20 M1 PO; -PROTONIX 20 MG20 M1 PO; -PULMICORT0.5 MG/21 INH; -REMERON 30 MG T30 M1 PO
[2021-08-14 01:19] LABS: ABSOLUTE NEUTROPHILS 16.2 thou/uL (1.4-8.2); BASOPHILS 0.9 % (0.0-2.0); EOSINOPHILS 4.2 % (0.0-3.0); HEMOGLOBIN 10.3 gm/dL (12.0-15.0); LYMPHOCYTES 5.4 % (24.0-44.0); MCH 25.7 pg (26.0-34.0); MCHC 30.4 g/dL (28.0-37.0); MCV 84.6 fL (80.0-100.0); MONOCYTES 5.6 % (1.0-8.0); PLATELET COUNT 375 thou/uL (150-400); POLYS 83.9 % (36.0-66.0); RBC 4.02 mil/uL (4.20-5.00); WBC 19.3 thou/uL (4.0-11.0)
[2021-08-14 01:32] LABS: CALCIUM 8.7 mg/dL (8.5-10.1); POTASSIUM 4.7 mmol/L (3.5-5.1)
[2021-08-14 01:38] LABS: TOTAL BILIRUBIN 0.3 mg/dL (0.2-1.0); TOTAL PROTEIN 6.6 g/dL (6.4-8.2)
[2021-08-14 07:18] LABS: URINE BILIRUBIN NEGATIVE (Negative); URINE BLOOD TRACE (Negative); URINE CLARITY CLEAR; URINE COLOR YELLOW; URINE GLUCOSE-RANDOM* NEGATIVE (Negative); URINE KETONES NEGATIVE (Negative); URINE LEUKOCYTES-REFLEX NEGATIVE (Negative); URINE NITRITE-REFLEX NEGATIVE (Negative); URINE PROTEIN (DIPSTICK) NEGATIVE (Negative); URINE SPECIFIC GRAVITY >= 1.030 (1.005-1.035); URINE UROBILINOGEN 0.2 E.U./dl (0.2-1.0)
[2021-08-15 03:18] VITALS: BP 102/58
[2021-08-15 03:23] LABS: HEMATOCRIT 29.3 % (37.0-47.0); HEMOGLOBIN 8.9 gm/dL (12.0-15.0); MCH 25.5 pg (26.0-34.0); MCHC 30.5 g/dL (28.0-37.0); MCV 83.7 fL (80.0-100.0); RBC 3.5 mil/uL (4.20-5.00); RDW 15.8 % (10.5-14.5); WBC 27.6 thou/uL (4.0-11.0)
[2021-08-15 03:43] LABS: CALCIUM 8.2 mg/dL (8.5-10.1); CREATININE 1.1 mg/dL (0.6-1.0); POTASSIUM 4.6 mmol/L (3.5-5.1)
[2021-08-15 07:55] VITALS: BP 107/38
[2021-08-15 11:29] LABS: BE(vivo) -5.1 mmol/L (-2 to +3); HCO3 19.3 mmol/L (22.0-26.0); PCO2 33.2 mmHg (35.0-45.0); PO2 59.4 mmHg (80.0-100.0); pH 7.382 (7.360-7.450); sO2 90.7 % (92.0-98.0)
[2021-08-15 16:06] VITALS: BP 114/44
[2021-08-16 03:44] LABS: HEMATOCRIT 27.9 % (37.0-47.0); HEMOGLOBIN 8.5 gm/dL (12.0-15.0); MCH 25.9 pg (26.0-34.0); MCHC 30.5 g/dL (28.0-37.0); PLATELET COUNT 309 thou/uL (150-400); RBC 3.29 mil/uL (4.20-5.00); RDW 16.2 % (10.5-14.5); WBC 22.1 thou/uL (4.0-11.0)
[2021-08-16 04:40] LABS: ALBUMIN 1.6 g/dL (3.4-5.0); CALCIUM 7.9 mg/dL (8.5-10.1); CREATININE 0.9 mg/dL (0.6-1.0); MAGNESIUM 2.3 mg/dL (1.8-2.4); PHOSPHORUS 3.2 mg/dL (2.5-4.9); POTASSIUM 4.3 mmol/L (3.5-5.1); TOTAL BILIRUBIN 0.2 mg/dL (0.2-1.0); TOTAL PROTEIN 5.2 g/dL (6.4-8.2)
[2021-08-16 05:31] LABS: ABSOLUTE NEUTROPHILS 21.4 thou/uL (1.4-8.2); ANISOCYTOSIS 1+; MYELOCYTES 1 %
[2021-08-16 10:13] VITALS: BP 142/62
[2021-08-16 19:59] VITALS: BP 139/63
[2021-08-17 04:48] VITALS: BP 154/85
[2021-08-17 06:11] LABS: BASOPHILS 0.3 % (0.0-2.0); HEMOGLOBIN 9.6 gm/dL (12.0-15.0); LYMPHOCYTES 2.5 % (24.0-44.0); MCH 25.2 pg (26.0-34.0); MCHC 29.9 g/dL (28.0-37.0); MCV 84.2 fL (80.0-100.0); PLATELET COUNT 365 thou/uL (150-400); POLYS 94.2 % (36.0-66.0); RDW 16.9 % (10.5-14.5); WBC 21.2 thou/uL (4.0-11.0)
[2021-08-17 06:31] LABS: ALBUMIN 1.8 g/dL (3.4-5.0); CALCIUM 8.1 mg/dL (8.5-10.1); CREATININE 0.8 mg/dL (0.6-1.0); POTASSIUM 4.3 mmol/L (3.5-5.1); TOTAL BILIRUBIN 0.1 mg/dL (0.2-1.0); TOTAL PROTEIN 6.2 g/dL (6.4-8.2)
[2021-08-17 07:49] LABS: APTT 26.7 Seconds (24.5-32.8); PROTIME 10.9 Seconds (10.5-12.1)
[2021-08-17 08:31] VITALS: BP 162/81
[2021-08-17 13:35] VITALS: BP 153/65
[2021-08-17 13:40] VITALS: BP 162/74
[2021-08-17 19:07] VITALS: BP 147/63
[2021-08-18 08:55] VITALS: BP 152/72
[2021-08-18 11:44] VITALS: BP 168/71
[2021-08-18 22:17] VITALS: BP 145/59
[2021-08-19] VITALS (12 sets, daily range): BP systolic 66–186; BP diastolic 35–92
[2021-08-19 06:53] LABS: HEMATOCRIT 33.9 % (37.0-47.0); HEMOGLOBIN 10.4 gm/dL (12.0-15.0); MCH 25.9 pg (26.0-34.0); MCHC 30.7 g/dL (28.0-37.0); MCV 84.3 fL (80.0-100.0); RBC 4.02 mil/uL (4.20-5.00); RDW 16.9 % (10.5-14.5); WBC 15.6 thou/uL (4.0-11.0)
[2021-08-19 07:00] LABS: CALCIUM 8.3 mg/dL (8.5-10.1); CREATININE 0.6 mg/dL (0.6-1.0); POTASSIUM 4.6 mmol/L (3.5-5.1)
[2021-08-19 20:17] LABS: BE(vivo) -0.7 mmol/L (-2 to +3); HCO3 30.4 mmol/L (22.0-26.0); PO2 70.1 mmHg (80.0-100.0); sO2 87.1 % (92.0-98.0)
[2021-08-19 20:18] LABS: PCO2 92.3 mmHg (35.0-45.0); pH 7.135 (7.360-7.450)
[2021-08-19 22:53] LABS: BE(vivo) -2.1 mmol/L (-2 to +3); sO2 85.5 % (92.0-98.0)
[2021-08-19 22:55] LABS: PCO2 104.3 mmHg (35.0-45.0); pH 7.077 (7.360-7.450)
[2021-08-20] VITALS (72 sets, daily range): BP systolic 89–144; BP diastolic 41–72
[2021-08-20 00:55] LABS: BE(vivo) -3.8 mmol/L (-2 to +3); HCO3 23.4 mmol/L (22.0-26.0); PCO2 53.2 mmHg (35.0-45.0); PO2 164.6 mmHg (80.0-100.0); sO2 98.8 % (92.0-98.0)
[2021-08-20 00:56] LABS: pH 7.261 (7.360-7.450)
[2021-08-20 05:01] LABS: HEMATOCRIT 26.9 % (37.0-47.0); MCHC 30.9 g/dL (28.0-37.0); MCV 84.2 fL (80.0-100.0); RBC 3.19 mil/uL (4.20-5.00); RDW 16.8 % (10.5-14.5); WBC 22.7 thou/uL (4.0-11.0)
[2021-08-20 05:03] LABS: CREATININE 0.8 mg/dL (0.6-1.0); POTASSIUM 4.7 mmol/L (3.5-5.1)
[2021-08-20 05:22] LABS: HEMOGLOBIN 8.3 gm/dL (12.0-15.0)
--- NOTE | 2021-08-20 08:40 | EKG ---
[address] [address] ELECTROCARDIOGRAM REPORT Name: MARAH CLARKE Room #: 251-P [facility] IN .R.#: [id number] Admission: 08/14/21 Attend Phys: Luisito Jo MD Discharge: Date of : 43 Report #: [id number] [facility] Test Date: 2021-08-19 Test Time: 20:18:02 Pat Name: MARAH CLARKE Department: Room: [facility] Gender: F Topography Technician: CHERELLE : 1945 Requested By: Rachel Ortega Order Number: [id number] MD: Wilfredo Bynum Measurements Intervals [place] Rate: 134 P: 52 OK: 124 QRS: 26 QRSD: 83 T: QT: 321 QTc: 480 Interpretive Statements Sinus tachycardia Atrial premature complex Abnormal inferior Q waves No previous ECG available for comparison Electronically Signed On 08-20-2021 8:40:16 RN HEMO DIALYSIS by Wilfredo Bynum [email or web address] <ELECTRONICALLY SIGNED> By: Wilfredo Bynum MD, [facility] 08/20/21 0840 17 17 Wilfredo Bynum MD, FACC /EPI
[2021-08-20 12:25] LABS: BF NUCLEATED CELLS 12092 /mm3; BF RBC 19693 /mm3
[2021-08-20 12:39] LABS: CLARITY CLOUDY; COLOR YELLOW; TOTAL VOLUME 40 mL
[2021-08-20 14:41] LABS: SOURCE PLEURAL FLUID
--- NOTE | 2021-08-20 15:30 | 2DMMODE ---
[address] [address] 2 D/M-MODE ECHOCARDIOGRAM Name: MARAH CLARKE Room #: 251-P ADM IN M.R.#: [id number] Admission: 08/14/21 Attend Phys: Luisito Jo MD Discharge: Date of : 43 Report #: [id number] THIS REPORT FOR: cc: Karma Ferrer MD, Stany A. MD Santiago, Patrick MD [facility] ~ APPROVED REPORT Study performed: 08/20/2021 14:23:04 EXAM: Comprehensive 2D, Doppler, and color-flow Echocardiogram Patient Location: ICU Room #: [facility] Status: routine BSA: 1.70 HR: 61 bpm BP: 112/57 mmHg Rhythm: NSR Other Information Study Quality: Technically Difficult Technically limited study due to Limited imaging windows, patient on ventilator, inability to position patient. Indications Dyspnea Hypertension/HDD Left Ventricle Left ventricle is grossly normal size. There is normal left ventricular wall thickness. The overall left ventricular systolic function appears normal. LVEF is >55%. This study is not technically sufficient to allow evaluation of the LV diastolic function. Right Ventricle Right ventricle is grossly normal in size. Right ventricular systolic function is grossly normal. [place] The left atrium size is normal. The right atrium size is normal. Aortic Valve [address] [address] 2 D/M-MODE ECHOCARDIOGRAM Name: MARAH CLARKE Room #: 251-P ADM IN M.R.#: [id number] Admission: 08/14/21 Attend Phys: Dian Obregon Discharge: Date of : 43 Report #: [id number] The aortic valve is not well visualized. No aortic regurgitation is present. There is no aortic valvular stenosis. Mitral Valve The mitral valve is normal in structure. There is no mitral valve regurgitation noted. No evidence of mitral valve stenosis. Tricuspid Valve Tricuspid valve is not well visualized. There is no tricuspid valve regurgitation noted. Pulmonic Valve Pulmonic valve is not well visualized. Great Vessels The aortic root is normal in size. The inferior vena cava is dilated with no inspiratory collapse. Pericardium There is no pericardial effusion. <Conclusion> Technically difficult study Normal left ventricular size/wall thickness Ejection fraction of 55%. [place] not well seen. Normal right ventricular size/function Normal atrial size Aortic valve not well seen but there are no valve dysfunction detected Normal mitral valve structure and function No tricuspid valve insufficiency detected Normal aortic root size No pericardial effusion <ELECTRONICALLY SIGNED> By: Wilfredo Bynum MD, [facility] 08/20/211529 29 29 Wilfredo Bynum MD, FACC /INF
[2021-08-21] VITALS (80 sets, daily range): BP systolic 89–175; BP diastolic 34–72
[2021-08-21 05:32] LABS: HEMATOCRIT 24.8 % (37.0-47.0); HEMOGLOBIN 7.9 gm/dL (12.0-15.0); MCH 26.3 pg (26.0-34.0); MCHC 31.7 g/dL (28.0-37.0); RBC 2.99 mil/uL (4.20-5.00); RDW 16.6 % (10.5-14.5); WBC 14.6 thou/uL (4.0-11.0)
[2021-08-21 05:47] LABS: CALCIUM 7.7 mg/dL (8.5-10.1); POTASSIUM 3.9 mmol/L (3.5-5.1)
[2021-08-21 09:03] LABS: SOURCE PLEURAL
[2021-08-21 12:07] LABS: BODY FLUID GLUCOSE 113 mg/dL (()); BODY FLUID LDH 3640 IU/L (()); BODY FLUID PROTEIN 2.9 g/dL (())
[2021-08-21 13:09] LABS: HCO3 20.5 mmol/L (22.0-26.0); PCO2 35.5 mmHg (35.0-45.0); sO2 97.6 % (92.0-98.0)
[2021-08-22] VITALS (21 sets, daily range): BP systolic 116–163; BP diastolic 50–79
[2021-08-23] VITALS (11 sets, daily range): BP systolic 124–167; BP diastolic 50–88
[2021-08-23 05:45] LABS: HEMATOCRIT 23.8 % (37.0-47.0); HEMOGLOBIN 7.5 gm/dL (12.0-15.0); MCHC 31.7 g/dL (28.0-37.0); MCV 81.9 fL (80.0-100.0); RBC 2.9 mil/uL (4.20-5.00); RDW 17.3 % (10.5-14.5); WBC 15.7 thou/uL (4.0-11.0)
[2021-08-23 06:07] LABS: CALCIUM 7.1 mg/dL (8.5-10.1); CREATININE 0.6 mg/dL (0.6-1.0); POTASSIUM 4.1 mmol/L (3.5-5.1)
[2021-08-24] VITALS (19 sets, daily range): BP systolic 118–156; BP diastolic 51–73
[2021-08-24 05:57] LABS: HEMOGLOBIN 6.9 gm/dL (12.0-15.0)
[2021-08-24 05:59] LABS: HEMATOCRIT 21.6 % (37.0-47.0); MCH 26.3 pg (26.0-34.0); MCHC 31.9 g/dL (28.0-37.0); MCV 82.4 fL (80.0-100.0); RBC 2.63 mil/uL (4.20-5.00); WBC 14.5 thou/uL (4.0-11.0)
[2021-08-24 06:20] LABS: CALCIUM 7.5 mg/dL (8.5-10.1); CREATININE 0.6 mg/dL (0.6-1.0); POTASSIUM 4.7 mmol/L (3.5-5.1)
[2021-08-25 01:48] VITALS: BP 134/59
[2021-08-25 03:51] VITALS: BP 159/73
[2021-08-25 05:05] LABS: MCH 25.9 pg (26.0-34.0); MCHC 32.1 g/dL (28.0-37.0); MCV 80.7 fL (80.0-100.0); PLATELET COUNT 179 thou/uL (150-400); RBC 3.47 mil/uL (4.20-5.00); RDW 17.6 % (10.5-14.5); WBC 15.7 thou/uL (4.0-11.0)
[2021-08-25 05:55] LABS: ALBUMIN 1.7 g/dL (3.4-5.0); CALCIUM 7.3 mg/dL (8.5-10.1); CREATININE 0.7 mg/dL (0.6-1.0); POTASSIUM 5.3 mmol/L (3.5-5.1); TOTAL BILIRUBIN 0.1 mg/dL (0.2-1.0); TOTAL PROTEIN 4.7 g/dL (6.4-8.2)
[2021-08-25 08:00] VITALS: BP 133/56
[2021-08-25 10:45] LABS: ABSOLUTE NEUTROPHILS 14.4 thou/uL (1.4-8.2); METAMYELOCYTES 1 %
[2021-08-25 10:46] LABS: ANISOCYTOSIS 1+
[2021-08-25 12:00] VITALS: BP 130/53
[2021-08-25 15:00] VITALS: BP 115/52
[2021-08-25 19:51] VITALS: BP 141/56
[2021-08-26 03:17] VITALS: BP 143/69
[2021-08-26 07:20] VITALS: BP 150/77
[2021-08-26 12:00] VITALS: BP 129/68
[2021-08-26 15:22] VITALS: BP 131/68
[2021-08-26 20:19] VITALS: BP 121/53
[2021-08-27 04:36] VITALS: BP 130/53
[2021-08-27 05:19] LABS: HEMATOCRIT 27.9 % (37.0-47.0); HEMOGLOBIN 8.9 gm/dL (12.0-15.0); MCH 26.6 pg (26.0-34.0); MCHC 31.8 g/dL (28.0-37.0); MCV 83.8 fL (80.0-100.0); RBC 3.33 mil/uL (4.20-5.00); RDW 18.4 % (10.5-14.5); WBC 22.3 thou/uL (4.0-11.0)
[2021-08-27 05:46] LABS: CALCIUM 7.2 mg/dL (8.5-10.1); CREATININE 0.6 mg/dL (0.6-1.0)
[2021-08-27 10:00] VITALS: BP 99/64
[2021-08-27 17:36] VITALS: BP 114/58
[2021-08-27 20:05] VITALS: BP 119/49
[2021-08-28 04:15] VITALS: BP 151/75
[2021-08-28 07:29] VITALS: BP 141/46
[2021-08-28 09:13] LABS: HEMATOCRIT 25.9 % (37.0-47.0); MCHC 30.7 g/dL (28.0-37.0); MCV 84.6 fL (80.0-100.0); RBC 3.06 mil/uL (4.20-5.00); RDW 19.8 % (10.5-14.5); WBC 17.1 thou/uL (4.0-11.0)
[2021-08-28 11:13] VITALS: BP 129/58
[2021-08-28 15:09] VITALS: BP 94/50
[2021-08-28 20:15] VITALS: BP 125/54
[2021-08-29 04:45] VITALS: BP 133/45
[2021-08-29 05:49] LABS: HEMATOCRIT 26.3 % (37.0-47.0); HEMOGLOBIN 8.4 gm/dL (12.0-15.0); MCH 26.8 pg (26.0-34.0); MCV 83.8 fL (80.0-100.0); RBC 3.14 mil/uL (4.20-5.00); RDW 21.5 % (10.5-14.5); WBC 16.1 thou/uL (4.0-11.0)
[2021-08-29 08:00] VITALS: BP 116/53
[2021-08-29 11:30] VITALS: BP 130/66
[2021-08-29 12:00] VITALS: BP 130/66
[2021-08-29 16:00] VITALS: BP 125/64
[2021-08-29 20:03] VITALS: BP 116/63
[2021-08-30 03:48] VITALS: BP 136/63
[2021-08-30 05:57] LABS: HEMATOCRIT 26.6 % (37.0-47.0); HEMOGLOBIN 8.4 gm/dL (12.0-15.0); MCH 26.7 pg (26.0-34.0); MCHC 31.6 g/dL (28.0-37.0); MCV 84.4 fL (80.0-100.0); RBC 3.15 mil/uL (4.20-5.00); RDW 22.2 % (10.5-14.5); WBC 15.8 thou/uL (4.0-11.0)
[2021-08-30 06:07] LABS: CALCIUM 7.5 mg/dL (8.5-10.1); CREATININE 0.6 mg/dL (0.6-1.0); MAGNESIUM 1.7 mg/dL (1.8-2.4); POTASSIUM 4.5 mmol/L (3.5-5.1)
[2021-08-30 08:05] VITALS: BP 122/66
[2021-08-30 11:30] VITALS: BP 129/51
[2021-08-30 15:40] VITALS: BP 118/50
[2021-08-30 19:38] VITALS: BP 128/59
[2021-08-31 03:43] VITALS: BP 131/65
[2021-08-31 05:02] LABS: ALBUMIN 1.6 g/dL (3.4-5.0); CALCIUM 7.4 mg/dL (8.5-10.1); CREATININE 0.6 mg/dL (0.6-1.0); MAGNESIUM 1.8 mg/dL (1.8-2.4); POTASSIUM 4.2 mmol/L (3.5-5.1); TOTAL BILIRUBIN 0.2 mg/dL (0.2-1.0); TOTAL PROTEIN 4.6 g/dL (6.4-8.2)
[2021-08-31 05:20] LABS: ABSOLUTE NEUTROPHILS 14.5 thou/uL (1.4-8.2); BASOPHILS 0.5 % (0.0-2.0); EOSINOPHILS 0.7 % (0.0-3.0); HEMATOCRIT 24.3 % (37.0-47.0); HEMOGLOBIN 7.7 gm/dL (12.0-15.0); LYMPHOCYTES 4.1 % (24.0-44.0); MCH 26.6 pg (26.0-34.0); MCHC 31.5 g/dL (28.0-37.0); MCV 84.4 fL (80.0-100.0); MONOCYTES 4.2 % (1.0-8.0); PLATELET COUNT 204 thou/uL (150-400); POLYS 90.5 % (36.0-66.0); RBC 2.88 mil/uL (4.20-5.00); RDW 21.4 % (10.5-14.5); WBC 16.1 thou/uL (4.0-11.0)
[2021-08-31 07:45] VITALS: BP 122/53
[2021-08-31 12:00] VITALS: BP 130/66
[2021-08-31 16:00] VITALS: BP 125/58
[2021-08-31 20:02] VITALS: BP 141/48
[2021-09-01 04:14] VITALS: BP 126/58
[2021-09-01 08:10] VITALS: BP 127/55
[2021-09-01 10:15] LABS: HEMATOCRIT 27.7 % (37.0-47.0); HEMOGLOBIN 8.7 gm/dL (12.0-15.0); MCH 26.7 pg (26.0-34.0); MCHC 31.4 g/dL (28.0-37.0); MCV 85.1 fL (80.0-100.0); RBC 3.25 mil/uL (4.20-5.00); RDW 22.3 % (10.5-14.5); WBC 17.1 thou/uL (4.0-11.0)
[2021-09-01 11:25] VITALS: BP 115/57
[2021-09-01 15:45] VITALS: BP 112/53
[2021-09-01 20:15] VITALS: BP 105/55
[2021-09-02 05:07] VITALS: BP 133/58
[2021-09-02 07:57] VITALS: BP 129/52
[2021-09-02 12:08] VITALS: BP 120/54
[2021-09-02 15:02] VITALS: BP 126/50
[2021-09-02 20:17] VITALS: BP 134/57
[2021-09-03 06:13] VITALS: BP 146/62
[2021-09-03 07:49] VITALS: BP 139/67
[2021-09-03 11:34] VITALS: BP 106/44
[2021-09-03] MEDS ORDERED: PROTONIX 20 MG20 M1 PO (13:00)
[2021-09-03] MEDS ORDERED: PREDNISONE 20 M20 M1 PO (13:00)
[2021-09-03] MEDS ORDERED: LIDOCAINE1 EACH TRANSDERM (13:00)
[2021-09-03] MEDS ORDERED: ACETAMINOPHEN325 M1 PO (13:00)
[2021-09-03] MEDS ORDERED: REMERON 30 MG T30 M1 PO (13:00)
[2021-09-03] MEDS ORDERED: PULMICORT0.5 MG/21 INH (13:00)
[2021-09-03] MEDS ORDERED: MIRALAX17 GM PER TUBE (13:00)
--- NOTE | 2021-09-04 15:07 | PATH ---
[facility] [place] [address] PATHOLOGY RPT PROCEDURE Name: MARAH CLARKE Room #: 207-P [facility] IN M.R.#: [id number] Admission: 08/14/21 Date of : 43 Discharge: 09/03/21 Report #: [id number] Path Case #: [id number] Note [facility] Accession Number: [id number] TESTS RESULT FLAG UNITS REF RANGE LAB Clinician Provided Cytology Information No. of containers..01 Other (Miscellaneous) Source: [A] 01 PLEURAL DIAGNOSIS: [A] 02 PLEURAL FLUID, FOR CYTOLOGY: POSITIVE FOR MALIGNANT CELLS. METASTATIC ADENOCARCINOMA, COMPATIBLE WITH LUNG PRIMARY. METASTATIC CARCINOMA IS PRESENT. COMMENT: Immun[facility]ochemical [facility] with appropriate controls and show the following results: TTF-1 - positive in tumor cells. GATA3 - negative in tumor cells. P40 - negative in tumor cells. Napsin A - positive in tumor cells GENE-EP4 - positive in tumor cells Calretinin - negative Findings favor metastatic adenocarcinoma. Dr. Cooley at [facility] is notified by Dr. Chambers on 08/25/[address] Sarah Asif has co-reviewed the case and has agreed to the diagnosis on 08/24/2021. (ANK:juan; 08/24/2021) Addendum: 02 Special studies report received from [facility], [address] [place] [address], [address], [place], [address], on case [id number], labeled with their number [id number], dated 09/01/2021. . PD-L1 22C3 Immunohistochemistry Analysis: Non-Small Cell Lung Cancer (NSCLC) . Body Site: Pleural fluid, for cytology. Specimen Received: 1 paraffin block labeled: [id number]. Fixative: Not provided. . Clinical History Positive for malignant cells. Metastatic adenocarcinoma, compatible with lung primary. Metastatic carcinoma is present. . Results Table PD-L1 22C3 NSCLC Tumor Interpretation Proportion Score (TPS) [address] [address] PATHOLOGY RPT PROCEDURE Name: MARAH CLARKE Ramos Room #: 207-P [facility] IN M.R.#: [id number] Admission: 08/14/21 Date of : 43 Discharge: 09/03/21 Report #: [id number] Path Case #: [id number] 6% Expression- See Reference Ranges . Reference Ranges: PD-L1 22C3 in Non-Small Cell Lung Cancer (NSCLC) TPS less than 1%: No Expression . TPS 1%-49%: Expression . Eligible for KEYTRUDA (pembrolizumab) monotherapy . NOT eligible for LIBTAYO (cemiplimab-rwlc) monotherapy . TPS equal to or greater than 50%: High Expression . Eligible for KEYTRUDA (pembrolizumab) monotherapy . Eligible for LIBTAYO (cemiplimab-rwlc) monotherapy . Note: PD-L1 expression level TPS equal to or greater than 1% determines eligibility for KEYTRUDA (pembrolizumab). PD-L1 expression level TPS equal to or greater than 50% may be of interest to treating physician and includes eligibility for KEYTRUDA monotherapy. . at [facility]. Sebastien Hood M.D. Pathologist . Methodology: PD-L1 protein expression by immunohistochemistry is determined by using the Tumor Proportion Score (TPS), which is the percentage of at least 100 viable tumor cells showing partial or complete membrane staining at any intensity. . Intended Use: PD-L1, IHC 22C3 pharmDx is an FDA approved qualitative immunohistochemical assay using monoclonal mouse anti-PD-L1, Clone 22C3 intended for use in the detection of PD-L1 protein in formalin-fixed, paraffin-embedded (FFPE) non-small cell lung cancer (NSCLC) tissues using EnVision FLEX visualization system on [employer]. PD-L1 22C3 pharmDx is indicated as an aid in identifying NSCLC patients for treatment with KEYTRUDA (pembrolizumab) or LIBTAYO (cemiplimab-rwlc) monotherapy. See the KEYTRUDA and LIBTAYOr product labels for specific clinical circumstances guiding PD-L1 testing. . References: Ricardo TS, Kirk YL, Kayley I, et al: Pembrolizumab versus chemotherapy for previously untreated, NN-Z3-yrsvqyshdh, locally advanced or metastatic nonsmall-cell lung cancer (KEYNOTE-042): a randomised, open-label, [facility] [address] [place] [address] PATHOLOGY RPT PROCEDURE Name: VINCE,MARAH A Room #: 207-P DIS IN M.R.#: [id number] Admission: 08/14/21 Date of : 43 Discharge: 09/03/21 Report #: [id number] Path Case #: [id number] controlled, phase 3 trial. Lancet 2019, 393 (71106), 0012-3429. . Yolanda RS, Mary P, Yancy D-W, et al: Pembrolizumab versus docetaxel for previously treated, RR-H9-skjjizdf, advanced hcs-xaxew-uhnt lung cancer (KEYNOTE-010): a randomized controlled trial. Lancet 2016, 387 (63114), 7999-5708. . Bebo EB, Hilary NA, Fannie R, et al: Pembrolizumab for the treatment of jkq-kfhvb-aezz lung cancer. N Engl J Med 2015, 372 (85), 2715-6921. . Maggy Wells; Yocasta Zarate; Shakira sherwood M.; et al. Cemiplimab monotherapy for first-line treatment of advanced dbo-ppxsm-aicu lung cancer with PD-L1 of at Least 50%: A multicentre, open-label, global, phase 3, randomised, controlled trial. Lancet 2020, 397 (49603), 767-084. . LIBTAYO Package Insert . Disclaimer This Test was performed by [employer] at [facility], [address]. [facility] is a business unit of [employer] a wholly-owned subsidiary of [employer]. . . Any image(s) that accompany this report is/are a field sales representative image(s) only and should not be used to render a diagnosis. . This interpretation is contingent on the specimen and the clinical information received. . Known positive cells or tissues are employed with each test and examined to ensure positivity. Positive and negative internal controls, if present, react appropriately. . This analysis is an adjunct to the evaluation of the referring physician and does not represent a final diagnosis. . The immunohistochemistry tests performed at [employer] were validated on tissue fixed in 10% neutral buffered formalin. The performance characteristics of the tests performed on tissue processed in other fixatives is not known. . This assay has not been validated on decalcified tissues. Results should be interpreted with caution if this specimen was decalcified given the likelihood of decreased staining or false negativity on decalcified specimens. . [address] [address] PATHOLOGY RPT PROCEDURE Name: MARAH CLARKE Room #: 207-P DIS IN M.R.#: [id number] Admission: 08/14/21 Date of : 43 Discharge: 09/03/21 Report #: [id number] Path Case #: [id number] A complete copy of the report is on file. . Professional services performed by [employer] at [facility] [facility] [address], [place] [address]. Technical services performed by [employer] at [facility], [place] [address]. . (ANK:aria 09/02/2021) . . . Special studies report received from [facility], [address] [place] [address] [address], [place], [address], on case [id number] A1, labeled with their number [id number], dated 09/04/21. . EGFR Gene Mutation Analysis . INTERPRETATION: Negative for EGFR Mutation. . Indication for Study: Metastatic Lung Adenocarcinoma . Specimen Site and Type: Paraffin-Embedded Tissue-Pleural Fluid . Nucleotide Change: . Amino Acid Change: . Comments: No mutations were detected within the analyzed region of the EGFR gene in the sample provided for analysis. Less than 5% of non-small cell lung carcinoma patients without identifiable mutations are reported to be responsive to EGFR tyrosine kinase inhibitor therapies. Results should be interpreted in conjunction with clinical and other laboratory findings for the most accurate interpretation. . A subgroup of non-small cell lung cancer (NSCLC) patients has shown clinical responsiveness to the epidermal growth factor receptor (EGFR) inhibitors gefitinib (IRESSA) and erlotinib (Tarceva), including never smokers, individuals of ethnicity, and those with adenocarcinoma histology. In the majority of patients with highly responsive tumors, the tumor contains a somatic mutation within the EGFR tyrosine kinase domain. The presence of a somatic EGFR mutation is significantly associated with response to gefitinib and erlotinib, and is strongly predictive of prolonged survival in NSCLC patients. . T790M mutation had been tested but was not detected in this submitted specimen. [address] [address] PATHOLOGY RPT PROCEDURE Name: MARAH CLARKE Ramos Room #: 207-P DIS IN M.R.#: [id number] Admission: 08/14/21 Date of : 43 Discharge: 09/03/21 Report #: [id number] Path Case #: [id number] . This assay is able to detect 5% mutation in a background of wild-type DNA. . See report [id number] for further information. See report [id number] for further information. . . at [employer] Gurpreet Lainez, Ph.D., BHUPINDER DABMG, DABCC, DLMcm, M([facility])cm, SANNA([facility])cm . Methodology: Genomic DNA was isolated from the provided tumor specimen. Exons 18 through 21 of the EGFR gene were subjected to SNaPShot multiplex PCR and primer extension for mutation detection. . Table: This Assay Can Detect the Following Mutations EGFR EGFR Codon Mutation Approximate % of all EGFR Exon Mutations 18 E709 E709K,E709Q 1% G719 G719S,G719C,G719A,G719D 2-5% 19 Insertions 18bp ins 1% Deletions 9,12,15,18,24 bp del 45% 20 Insertions 3,6,8,12 bp ins 5-10% S768 S768I 1-2% R776 R776C <1% T790 T790M 2% 21 L858 L858R 40% A859 A859T <1% L861 L861Q,L861R 2-5% * This Assay does not distinguish between the 18bp insertion and deletions at nucleotide position 2235 and 2237 . References: 1. Db PA, Hossein JA, Mathew BE. Epidermal Growth Factor Receptor Mutations in Wxn-Bmjoe-Zpnq Lung Cancer: Implications for Treatment and Tumor Biology. J. Clin. Oncol. 2005; 23:6688-7391. 2. Teresa LAWSON et al. A Platform for Rapid Detection of Multiple Oncogenic Mutations with Relevance to Targeted Therapy in Uaa-Ycxsc-Ygof Lung Cancer. J. Mol. Diagn. 2011;13(1):74-84. . Disclaimer(s): Any image(s) that accompany this report is/are a field sales representative image(s) only and should not be used to render a diagnosis. . This test was developed and its performance characteristics determined by [employer] It has not been cleared or approved [address] [place] [address] PATHOLOGY RPT PROCEDURE Name: MARAH CLARKE Room #: 207-P DIS IN M.R.#: [id number] Admission: 08/14/21 Date of : 43 Discharge: 09/03/21 Report #: [id number] Path Case #: [id number] by the Food and Drug Administration. . Performing Labs: This Test was performed at [facility]. at [address] [place] [address], [place] [address], [place], [address]. [employer] is a business unit of [employer] a wholly-owned subsidiary of [employer]. . A complete copy of the report is on file. . Professional services performed by [employer] at [facility] [facility] [address], [place] [address]. Technical services performed by [employer] at [facility] [place] [address]., [facility] [address], [place] [address]. . (ANK:aria 09/04/2021) . [place]God[place]/09/04/2021 Addendum Electronically Signed by Zhanna Chambers MD PATHOLOGIST Addendum #2: Special studies report received from [facility] [employer], [address] [place] [address], [facility] [address], [place], [address], on case [id number], labeled with their number [id number], dated 09/04/2021. . EGFR Gene Mutation Analysis . INTERPRETATION: Negative for EGFR Mutation. . Indication for Study: Metastatic Lung Adenocarcinoma . Specimen Site and Type: Paraffin-Embedded Tissue-Pleural Fluid . Nucleotide Change: . Amino Acid Change: . Comments: No mutations were detected within the analyzed region of the EGFR gene in the sample provided for analysis. Less than 5% of non-small cell lung carcinoma patients without identifiable mutations are reported to be responsive to EGFR tyrosine kinase inhibitor therapies. Results should be interpreted in conjunction with clinical and other laboratory findings for the most accurate interpretation. . A subgroup of non-small cell lung cancer (NSCLC) patients has shown clinical responsiveness to the epidermal growth factor receptor (EGFR) [address] [address] PATHOLOGY RPT PROCEDURE Name: MARAH CLARKE Ramos Room #: 207-P [facility] IN ..#: [id number] Admission: 08/14/21 Date of : 43 Discharge: 09/03/21 Report #: [id number] Path Case #: [id number] inhibitors gefitinib (IRESSA) and erlotinib (Tarceva), including never smokers, individuals of ethnicity, and those with adenocarcinoma histology. In the majority of patients with highly responsive tumors, the tumor contains a somatic mutation within the EGFR tyrosine kinase domain. The presence of a somatic EGFR mutation is significantly associated with response to gefitinib and erlotinib, and is strongly predictive of prolonged survival in NSCLC patients. . T790M mutation had been tested but was not detected in this submitted specimen. . This assay is able to detect 5% mutation in a background of wild-type DNA. . . See report [id number] for further information. See report [id number] for further information. . . at [facility]. Gurpreet Lainez, Ph.D., BHUPINDER DABMG, DABCC, DLMcm, M([facility])cm, SANNA([facility])cm . Methodology: Genomic DNA was isolated from the provided tumor specimen. Exons 18 through 21 of the EGFR gene were subjected to SNaPShot multiplex PCR and primer extension for mutation detection. . Table: This Assay Can Detect the Following Mutations EGFR EGFR Codon Mutation Approximate % of all EGFR Exon Mutations 18 E709 E709K,E709Q 1% G719 G719S,G719C,G719A,G719D 2-5% 19 Insertions 18bp ins 1% Deletions 9,12,15,18,24 bp del 45% 20 Insertions 3,6,8,12 bp ins 5-10% S768 S768I 1-2% R776 R776C <1% T790 T790M 2% 21 L858 L858R 40% A859 A859T <1% L861 L861Q,L861R 2-5% * This Assay does not distinguish between the 18bp insertion and deletions at nucleotide position 2235 and 2237 . References: 1. Db FLORES, Hossein JA, Mathew BE. Epidermal Growth Factor Receptor Mutations in Ffx-Athrg-Gttp Lung Cancer: Implications for Treatment and [address] [address] PATHOLOGY RPT PROCEDURE Name: MARAH CLARKE Ramos Room #: 207-P [facility] IN M.R.#: [id number] Admission: 08/14/21 Date of : 43 Discharge: 09/03/21 Report #: [id number] Path Case #: [id number] Tumor Biology. J. Clin. Oncol. 2005; 23:5861-7349. 2. Teresa LAWSON et al. A Platform for Rapid Detection of Multiple Oncogenic Mutations with Relevance to Targeted Therapy in Wpg-Zavpa-Xxir Lung Cancer. J. Mol. Diagn. 2011;13(1):74-84. . Disclaimer(s): Any image(s) that accompany this report is/are a field sales representative image(s) only and should not be used to render a diagnosis. . This test was developed and its performance characteristics determined by [facility]. It has not been cleared or approved by the Food and Drug Administration. . Performing Labs: This Test was performed at [facility] at [address] [place] [address], [address]. [facility] is a business unit of [employer] a wholly-owned subsidiary of [employer]. . A complete copy of the report is on file. . Professional services performed by [employer] at [address] [place] [address]. Technical services performed by [employer] at [address] [place] [address]. . (ANK:lito; 09/04/2021) QMS/09/04/2021 Addendum Electronically Signed by Zhanna Chambers MD PATHOLOGIST Signed out by: Zhanna Chambers MD, Pathologist NPI- [id number] Performed by: Sariah London, Funeral Director/Embalmer/Owner (ASC) Gross description: 01 10ML, YELLOW, TURBID /LCS 08/24/2021 1045 Local FLAG LEGEND: L-Low Normal,H-High Normal,LL-Alert Low,HH-Alert High <-Panic Low,>-Panic High,A-Abnormal,AA-Critical Abnormal Performed at: 01 [facility] [address] [facility] [address] [place] [id number] PATHOLOGY RPT PROCEDURE Name: MARAH CLARKE Room #: 207-P [facility] IN [facility]#: [id number] Admission: 08/14/21 Date of : 43 Discharge: 09/03/21 Report #: [id number] Path Case #: [id number] [place] [address] Jj Terry MD, [address] [place] [address] [id number] [address] [address] Beth Wilkinson MD, Specimen Comment: A courtesy copy of this report has been sent to [phone] Specimen Comment: [phone], Specimen Comment: Report sent to , DR QUEZADA / DR SCOTT Performed at: [address], [place], [place] [address] MD Jj Terry MD Phone: [phone]
== END 2021-09-03 14:01 | DRG 871 ==
LOC: ER 00:15 → 2N 03:29 → 4S 03:29 → EROBS 03:29 → 2N 07:37 → 4S 08-15 06:00 → ICU 08-19 22:32 → 2N 08-25 02:36
PROVIDERS: Emergency Medicine; Hospitalist; Internal Medicine; Internal Medicine Pulmonary Disease; Nurse Practitioner; Nurse Practitioner Family; Pediatrics; Radiology Diagnostic Radiology; Radiology Vascular & Interventional Radiology; ADMIT Hospitalist; ATTEND Hospitalist
DX: A41.9 Sepsis, unspecified organism (principal); J18.9 Pneumonia, unspecified organism; E43 Unspecified severe protein-calorie malnutrition; J96.21 Acute and chronic respiratory failure with hypoxia; C34.32 Malignant neoplasm of lower lobe, left bronchus or lung; J44.0 Chronic obstructive pulmonary disease with (acute) lower respiratory infection; D62 Acute posthemorrhagic anemia; C34.91 Malignant neoplasm of unspecified part of right bronchus or lung; N18.30 Chronic kidney disease, stage 3 unspecified; Z88.0 Allergy status to penicillin; Z88.2 Allergy status to sulfonamides; Z20.822 Contact with and (suspected) exposure to COVID-19; Z68.20 Body mass index [BMI] 20.0-20.9, adult; E78.5 Hyperlipidemia, unspecified; D64.9 Anemia, unspecified; Z79.899 Other long term (current) drug therapy; Z66 Do not resuscitate; Z92.21 Personal history of antineoplastic chemotherapy; I73.9 Peripheral vascular disease, unspecified; F17.210 Nicotine dependence, cigarettes, uncomplicated; F41.1 Generalized anxiety disorder; I12.9 Hypertensive chronic kidney disease with stage 1 through stage 4 chronic kidney disease, or unspecified chronic kidney disease; I95.9 Hypotension, unspecified; I99.8 Other disorder of circulatory system
CPT/HCPCS: 10078; 10081; 10100; 10203; 85076